=== PATIENT | male | born 1985 | race Caucasian/White ===

== ENCOUNTER 2016-11-23 19:41 | Emergency (ER) | payer OTHER ==
[~2016-11-23] VITALS: Ht 172.7 cm; Wt 68.0 kg
[~2016-11-23 19:41] MED LIST: DEXT10TA9 PO; ESCI20TA PO; ONDA4TAB8 PO; SIME80TA6 PO; USTE45DI SQ
[2016-11-23 19:48] VITALS: Ht 172.7 cm; Wt 68.0 kg
--- NOTE | 2016-11-23 21:51 | RADRPT ---
PROCEDURE: XR Chest. CLINICAL INDICATION: Chest Pain. TECHNIQUE: Single frontal view of the chest. COMPARISON: None. FINDINGS: The cardiomediastinal silhouette is within normal limits. The lungs are clear. No signs of pleural f luid or pneumothorax are seen. The osseous structures and soft tissues are unremarkable. IMPRESSION: No evidence for active cardiopulmonary disease. RPTAT: [facility] Physician Beth Date Time Electronically viewed and signed by Physician Beth on 11/23/2016 21:51 RS/
[2016-11-23 21:57] LABS: ADD SCAN DIFF NO
[2016-11-23 22:00] LABS: BASOPHIL # 0.1 10^3/ul (0.0-0.1); BASOPHILS % 0.9 % (0.0-2.0); EOSINOPHILS # 0.3 10^3/ul (0.0-0.5); EOSINOPHILS % 2.8 % (0.0-7.0); HEMATOCRIT 43.2 % (42.0-52.0); HEMOGLOBIN 15.6 g/dl (14.0-18.0); LYMPHOCYTES # 3.1 10^3/ul (0.8-2.9); LYMPHOCYTES % 31.9 % (15.0-51.0); MEAN CORPUSCULAR HEMOGLOBIN 31.4 pg (29.0-33.0); MEAN CORPUSCULAR HGB CONC 36.1 g/dl (32.0-37.0); MEAN CORPUSCULAR VOLUME 86.9 fl (82.0-101.0); MEAN PLATELET VOLUME 10.1 fl (7.4-10.4); MONOCYTE # 0.8 10^3/ul (0.3-0.9); MONOCYTES % 7.9 % (0.0-11.0); NEUTROPHIL # 5.4 10^3/ul (1.6-7.5); NEUTROPHILS % 56.2 % (39.0-77.0); PLATELET COUNT 296 10^3/UL (140-415); RED BLOOD COUNT 4.97 10^6/ul (4.70-6.10); RED CELL DISTRIBUTION WIDTH 12.6 % (11.5-14.5); WHITE BLOOD COUNT 9.7 10^3/ul (4.8-10.8)
[2016-11-23 22:18] LABS: INR 0.86; PROTIME 11.7 Sec (12.2-14.2); PT RATIO 0.9
[2016-11-23 22:31] LABS: ANION GAP 15 (8-16); BLOOD UREA NITROGEN 16 mg/dl (7-20); CALCIUM 9.2 mg/dl (8.4-10.2); CARBON DIOXIDE 28 mmol/L (21-31); CHLORIDE 99 mmol/L (97-110); GLUCOSE 79 mg/dl (70-220); POTASSIUM 4.2 mmol/L (3.5-5.1); SODIUM 138 mmol/L (135-144)
[2016-11-23 22:45] LABS: TROPONIN-I < 0.012 ng/ml (0.00-0.12)
[2016-11-23] MEDS ORDERED: IBUP-1542 PO (23:19)
--- NOTE | 2016-11-23 23:28 | ERD ---
ER Documentation Chief Complaint Date/Time DATE: 11/23/16 TIME: 23:24 Chief Complaint CP and SOB when take a deep breathe since yesterday HPI This is a 31-year-old male that presents to the ER for chest pain since yesterday. Patient states that chest pain has gotten worse and is located throughout his entire chest. It is worse whenever he breathes in. Patient states that he felt a "popping sensation" in his chest. Patient does admit to some shortness of breath. He denies any abdominal pain, nausea, vomiting. He denies any fevers or chills. He denies any cough or cold symptoms. Denies any recent travel, leg swelling or redness. He denies any trauma to the chest. Patient does admit to his father having heart attack at age 45. Patient drinks however denies smoking or drugs. ROS 12 point review of systems was done, all negative except per HPI. Medications Home Meds Active Scripts Ibuprofen* (Motrin*) 600 Mg Tab, 600 MG PO Q6, #30 TAB Prov:BRUNA BLOOM 11/23/16 Ondansetron Hcl* (Zofran*) 4 Mg Tablet, 4 MG PO Q6H Y for NAUSEA, #14 TAB Prov:RADHA WALTER MD 06/23/15 Reported Medications Simethicone* (Gas-X*) 80 Mg Tab.chew, 80 MG PO Q6H Y for DISTENSION/GAS/BLOATING , TAB.CHEW 06/23/15 Ustekinumab (Stelara) 45 Mg/0.5 Ml Disp.syrin, 45 MG SQ DRUG TRIAL FOR PSORIASIS 06/23/15 Amphet Upz-Obchhy-P-Amphet (Adderall) 10 Mg Tablet, 10 MG PO BID, TAB 06/23/15 Escitalopram Oxalate* (Lexapro*) 20 Mg Tablet, 20 MG PO DAILY, #30 TAB 06/23/15 Allergies Allergies: Coded Allergies: No Known Allergy (Unverified , 06/23/15) PMhx/Soc History of Surgery: Yes (rhinoplasty) Anesthesia Reaction: No Hx Psychiatric Problems: Yes (ADHD, anxiety) Hx Miscellaneous Medical Probl: No Hx Alcohol Use: Yes (occasionally 1-2 drinks/week) Hx Substance Use: No (history of 10 years ago ) Hx Tobacco Use: No Smoking Status: Never smoker Physical Exam Vitals Vital Signs Date Time Temp Pulse Resp B/P Pulse Ox O2 Delivery O2 Flow Rate FiO2 11/23/16 19:48 99.3 93 18 125/77 Physical Exam GENERAL: The patient is well developed and appropriate for usual state of health , in no apparent distress. HEENT: Atraumatic. Conjunctivae are pink. Pupils equal, round, and reactive to light. Extraocular muscles are grossly intact. Bilateral tympanic membranes are clear with no evidence of erythema, effusion or dulling of the light reflex. The oropharynx is clear with no erythema or exudates. NECK: C-spine is soft and supple. There is no cervical lymphadenopathy. CHEST: Clear to auscultation bilaterally. There are no rales, wheezes or rhonchi. HEART: Regular rate and rhythm. No murmurs, clicks, rubs or gallops. ABDOMEN: Soft, nontender and nondistended. Good bowel sounds. No rebound or guarding. No gross peritonitis. No gross organomegaly or masses. No Candelaria sign or McBurney point tenderness. No pulsatile masses. BACK: No midline or flank tenderness. EXTREMITIES: Equal pulses bilaterally. There is no peripheral clubbing, cyanosis or edema. No focal swelling or erythema. Full range of motion. Grossly neurovascularly intact. NEURO: Alert and oriented. Cranial nerves II through XII are intact. Motor strength in all 4 extremities with 5/5 strength. Sensation grossly intact. Normal speech and gait. SKIN: There is no apparent rash or petechia. The skin is warm and dry. Result Diagram: 11/23/16213411/23/162134 Results 24 hrs Laboratory Tests Test 11/23/16 21:35 White Blood Count 9.710^3/ul Red Blood Count 4.9710^6/ul Hemoglobin 15.6g/dl Hematocrit 43.2% Mean Corpuscular Volume 86.9fl Mean Corpuscular Hemoglobin 31.4pg Mean Corpuscular Hemoglobin Concent 36.1g/dl Red Cell Distribution Width 12.6% Platelet Count 18122^3/UL Mean Platelet Volume 10.1fl Neutrophils % 56.2% Lymphocytes % 31.9% Monocytes % 7.9% Eosinophils % 2.8% Basophils % 0.9% Nucleated Red Blood Cells % 0.0/100WBC Neutrophils # 5.410^3/ul Lymphocytes # 3.110^3/ul Monocytes # 0.810^3/ul Eosinophils # 0.310^3/ul Basophils # 0.110^3/ul Nucleated Red Blood Cells # 0.010^3/ul Prothrombin Time 11.7Sec Prothrombin Time Ratio 0.9 INR International Normalized Ratio 0.86 Activated Partial Thromboplast Time 28.0Sec Sodium Level 138mmol/L Potassium Level 4.2mmol/L Chloride Level 99mmol/L Carbon Dioxide Level 28mmol/L Anion Gap 15 Blood Urea Nitrogen 16mg/dl Creatinine 1.00mg/dl Glucose Level 79mg/dl Calcium Level 9.2mg/dl Troponin I < 0.012ng/ml [place] [id number] Radiology Main Line: [phone] DIAGNOSTIC IMAGING REPORT Patient: MAREN FRITZ : 1985 Age: 31 Sex: M MR #: [id number] DOS: 11/23/162119 Ordering MD: BRUNA BLOOM PAMelC Location: [facility] Room/Bed: PROCEDURE: XR Chest. CLINICAL INDICATION: Chest Pain. TECHNIQUE: Single frontal view of the chest. COMPARISON: None. FINDINGS: The cardiomediastinal silhouette is within normal limits. The lungs are clear. No signs of pleural fluid or pneumothorax are seen. The osseous structures and soft tissues are unremarkable. IMPRESSION: No evidence for active cardiopulmonary disease. RPTAT: [facility] Physician Beth Date Time Electronically viewed and signed by Physician Beth on 11/23/2016 21:51 RS/ CC: BRUNA BLOOM Procedures/MDM Differential diagnosis includes but is not limited to; STEMI, dissection, pneumothorax, PE, esophageal rupture, tamponade, pneumonia, pericarditis, GERD, musculoskeletal, endocarditis, anxiety. This is a 31-year-old male presents to the ER with chest pain. At this time suspicion for acute cardiac etiology is low. EKG was taken and read by 79bpm no ST elevation or t wave inversion. Suspicion for pulmonary embolism is low as patient does not have any PERC criteria. Suspicion for AAA or aortic dissection is low as patient vital signs are stable and he is extremely well-appearing and comfortable. Suspicion for endocarditis is low, patient is afebrile and there are no murmurs on physical examination. Patient has never had a history of a murmur. Patient will be sent home with ibuprofen. He needs to follow-up with his primary care doctor within 1-2 days return to ER sooner if symptoms worsen. My medical decision making was discussed with the patient he understands and agrees with plan. Departure Diagnosis: Primary Impression: Chest pain Condition: Stable Patient Instructions: Chest Pain, Uncertain Cause Additional Instructions: Call your primary care doctor TOMORROW for an appointment during the next 1-2 days.See the doctor sooner or return here if your condition worsens before your appointment time. BRUNA BLOOM Nov 23, 2016 23:28
[2016-11-23 23:35] VITALS: BP 128/75; PULSE 75; RESP 16; TEMP 98.3
== END 2016-11-23 23:42 | disposition home or self-care (01) ==
LOC: FTE 19:41
DX: R07.9 Chest pain, unspecified (principal)
CPT/HCPCS: 36415; 71010; 80048; 84484; 85025; 85610; 85730; 93005; Z7502